=== PATIENT | male | born 1980 | race Hispanic/Latino ===

== ENCOUNTER 2018-01-24 10:45 | Day surgery (SDC) | payer SELFPAY ==
[2018-01-24] MEDS ORDERED: Adacel (T-DAP) 0.5 ML VIAL ONE (11:05)
[2018-01-24] MEDS ORDERED: Lidocaine 1% PF 5 ML VIAL ONE (11:37)
[2018-01-24] MEDS ORDERED: Dexamethasone 20 MG/5 ML VIAL ONE (11:37)
[2018-01-24] MEDS ORDERED: Ondansetron PF 4 MG/2 ML Vial ONE (11:37)
[2018-01-24] MEDS ORDERED: PROPOFOL 200 MG/20 ML VIAL ONE (11:37)
[2018-01-24] MEDS ORDERED: CEFAZOLIN 2 GM/50 ML BAG ONE ×2 (11:57→16:01)
[2018-01-24] MEDS ORDERED: Fentanyl 100 MCG/2 ML VIAL ONE ×2 (11:57→16:51)
[2018-01-24 12:13] LABS: #Eosinphils 0.2 thou/uL (0.0-0.7); #Lymphocytes 1.4 thou/uL (1.20-3.40); #Monocytes 0.5 thou/uL (0.11-0.59); #Neutrophils 5.3 thou/uL (1.40-6.50); %Basophils 0.4 % (0.0-1.0); %Lymphocytes 18.8 % (21.0-51.0); %Monocytes 6.5 % (0.0-10.0); %Neutrophils 71.4 % (42.0-75.0); Hemoglobin 12.8 g/dL (14.0-18.0); Mean Corpuscular HGB CONC 33.3 g/dL (32.0-36.0); Mean Corpuscular Hemoglobin 28.2 pg (27.0-31.0); Mean Corpuscular Volume 84.8 fL (78.0-98.0); Mean Platelet Volume 8.9 fL (7.4-10.4); Platelet Count 191 thou/uL (130-400); RBC Distribution Width 12.7 % (11.5-14.5); Red Blood Cell (RBC) Count 4.54 mill/uL (4.70-6.10); White Blood Cell (WBC) Count 7.4 thou/uL (4.8-10.8)
[2018-01-24 12:38] LABS: ALT (SGPT) 27 U/L (8-55); AST (SGOT) 23 U/L (5-34); Albumin 4.3 g/dL (3.5-5.0); Alkaline Phosphatase 90 U/L (40-150); Anion Gap 13 mmol/L (10-20); BUN (Urea Nitrogen) 14 mg/dL (8.9-20.6); Bilirubin, Total 0.4 mg/dL (0.2-1.2); Calc. Creatinine Clearance 0 mL/min (70-130); Calcium 9.7 mg/dL (7.8-10.44); Carbon Dioxide 24 mmol/L (22-29); Chloride 103 mmol/L (98-107); Estimated GFR-MDRD Greater than 90; Globulin 3.8 g/dL (2.4-3.5); Glucose 102 mg/dL (70-105); Potassium 3.8 mmol/L (3.5-5.1); Protein, Total 8.1 g/dL (6.0-8.3); Sodium 136 mmol/L (136-145)
--- NOTE | 2018-01-24 13:12 | RAD ---
RIGHT ANKLE THREE VIEWS: History: Injury from nail gun. Comparison: None. FINDINGS: There is a nail through the anterior tibial plafond extending to the talar neck. This is crossing the ankle joint. Nail appears to have gone through the cortex of the fibula given that there is some pun ctate radiopaque material on the lateral and medial cortex of the fibula. IMPRESSION: Radiopaque nail through the anterior tibial plafond crossing the ankle joint into the talar neck. POS: JESÚS
[2018-01-24] MEDS ORDERED: Midazolam HCl 2 mg/2 ml Vial ONE (16:51)
[2018-01-24] MEDS ORDERED: Bupivacaine/Epinephrine 0.25% 30 ML VIAL ONE (17:41)
--- NOTE | 2018-01-24 18:21 | RAD ---
LEFT ANKLE ONE VIEW: 01/24/18 HISTORY: Removal of nail from ankle, post nail removal. A single oblique view of the ankle demonstrates no evidence for residual metal foreign body . The pre viously noted nail has been removed. IMPRESSION: Removal of the nail from the ankle. POS: RRE
[2018-01-24] MEDS ORDERED: HYDROcodone/Acetaminophen 5/325 mg Tablet ONE (18:50)
--- NOTE | 2018-01-25 12:26 | HP ---
HISTORY OF PRESENT ILLNESS: The patient was at work today and was using a nail gun. He had the safe ty wired, bumped it and shot a nail through his leg into his talus. The nail was buried underneath t he skin and buried in the bone through the joint. PAST MEDICAL HISTORY: Positive for hypertension. CURRENT MEDICATIONS: He does not recall the name. ALLERGIES TO MEDICATIONS: None. SOCIAL HISTORY: He does not smoke or drink significantly. He has good family support system. REVIEW OF SYSTEMS: Negative for other injuries, head and neck trauma, or fall. PHYSICAL EXAMINATION: GENERAL: Pleasant gentleman, in no distress. HEENT: Normocephalic, atraumatic. LUNGS: Clear. HEART: Regular. ABDOMEN: Soft, nontender. EXTREMITIES: Right ankle shows pain with any range of motion, just a very small puncture wound, inab ility to move the right foot. Neurovascular status is intact. IMAGING STUDIES: Radiographs showed nail into the ankle joint and buried into the bone of the talus. ASSESSMENT: This is probably a countersunk finishing nail, will have to open his ankle joint and ope n his talus to remove this and irrigate, and he will be discharged home tonight as well. PLAN: Follow up in my office in a few days. He will be discharged home on Doucette and Keflex.
--- NOTE | 2018-01-25 12:37 | OP ---
PREOPERATIVE DIAGNOSES: Open ankle joint and open tibia fracture due to a puncture with a nail. POSTOPERATIVE DIAGNOSES: Open ankle joint and open tibia fracture due to a puncture with a nail. SURGEON: Joel Campbell M.D. ANESTHESIA: General. BLOOD LOSS: Minimal. SPECIMEN: None. DRAINS: None. COMPLICATIONS: None. DESCRIPTION OF PROCEDURE: Patient was taken to the operating where general anesthesia was induced. Right leg was prepped and draped in the usual sterile fashion. I elevated the tourniquet to 300 mmHg . I made a lateral arthrotomy, taking advantage of the open wound and also down the subperiosteal sp eliseo on the tibia. The head of the nail was buried into the tibia. I had to cut the head of the nail off. I opened the ankle joint. The front of the tibia was broken off right at the ankle joint wher e the nail went through into the neck of the talus. I could not pull the nail out from the tibial si de. This was a wire marilin-type nail and very soft metal. The head was removed. I cut the marilin in th e joint and delivered it into the joint from both ends. I removed broken piece of tibial from the maddison int. I curetted the joint and I irrigated copiously. I then released tourniquet and hemostasis obta ined. I injected Marcaine and the skin was closed with 2-0 Vicryl and 3-0 nylon. Sterile hunter ssings applied. Postoperative plan is for Keflex, Vicodin. Follow up in my office in 5 days.
== END 2018-01-24 19:05 | disposition home or self-care (01) ==
LOC: ERS 10:45 → SDC 14:00
PROVIDERS: ATTEND Orthopaedic Surgery
PROC: 0QSG0ZZ Reposition Right Tibia, Open Approach (ICD-10-PCS; principal; 2018-01-24)
DX: S82.51XB Displaced fracture of medial malleolus of right tibia, initial encounter for open fracture type I or II (principal); I10 Essential (primary) hypertension; Z79.899 Other long term (current) drug therapy; W45.0XXA Nail entering through skin, initial encounter; W29.4XXA Contact with nail gun, initial encounter; Y99.0 Civilian activity done for income or pay
CPT/HCPCS: 36415; 76001; 80053; 85025; 90471; 90715; 96365; 96375; J1100; J2001; J2250; J2405; J2704; J3010